=== PATIENT | female | born 1960 | race Caucasian/White ===

== ENCOUNTER 2017-12-21 09:57 | Emergency (ER) | payer OTHER ==
[~2017-12-21] VITALS: Ht 157.5 cm; Wt 67.6 kg
[2017-12-21 09:57] VITALS: BP_SYST 164
[2017-12-21] MEDS ORDERED: NACL 0.9% 1,000 ML IV ONE ×2 (11:00→12:00)
[2017-12-21] MEDS ORDERED: LORazepam 2 MG/ML VIAL (FOR ER USE) IVP ONE (11:00)
[2017-12-21 11:28] LABS: BASOPHILS # (AUTO) 0.1 K/uL (0.0-0.2); EOSINOPHILS % (AUTO) 0.4 % (0.0-4.0); HEMATOCRIT 45.1 % (36-48); HEMOGLOBIN 15.1 g/dL (12.0-16.0); LYMPHOCYTES # (AUTO) 1.1 K/uL (1.0-5.5); LYMPHOCYTES % (AUTO) 15.3 % (20.5-51.5); MEAN CORPUSCULAR HEMOGLOBIN 32 pg (27-31); MEAN CORPUSCULAR HGB CONC 34 % (32-36); MEAN CORPUSCULAR VOLUME 94 fL (79.0-98.0); MONOCYTES # (AUTO) 0.7 K/uL (0.0-1.0); MONOCYTES % (AUTO) 9.8 % (1.7-9.3); NEUTROPHILS # (AUTO) 5.5 K/uL (1.8-7.7); NEUTROPHILS % (AUTO) 73.5 % (40.0-70.0); PLATELET COUNT (AUTO) 214 K/uL (130-430); RED BLOOD CELL COUNT(AUTO) 4.79 MIL/uL (4.2-6.2); RED CELL DISTRIBUTION WIDTH 12.5 % (9.0-15.0); WHITE BLOOD COUNT (AUTO) 7.4 K/uL (4.8-10.8)
[2017-12-21 11:44] LABS: CALCIUM 9.5 mg/dL (8.4-11.0); CREATININE 0.89 mg/dL (0.55-1.30); POTASSIUM 3.5 mmol/L (3.5-5.1)
[2017-12-21 11:49] LABS: ALBUMIN 3.9 g/dL (3.4-4.8); TOTAL BILIRUBIN 0.6 mg/dL (0.0-1.0)
[2017-12-21 13:20] VITALS: BP_SYST 107
== END 2017-12-21 13:20 | disposition home or self-care (01) ==
LOC: SED 09:57
DX: E86.0 Dehydration (principal); R42 Dizziness and giddiness
CPT/HCPCS: 36415; 71045; 80053; 85025; 93005; 96361; 96374; 99285; J2060; J7030

== ENCOUNTER 2018-01-01 23:38 | Emergency (ER) | payer OTHER ==
[~2018-01-01] VITALS: Ht 157.5 cm; Wt 65.3 kg
[2018-01-01 23:40] VITALS: BP_SYST 138
--- NOTE | 2018-01-01 23:40 | NUR ---
Patient to ER bed 8 to gown for evaluation. Side rails up. Report given to LIVIER JACKMAN.
--- NOTE | 2018-01-01 23:41 | NUR ---
Patient AOx4, ambulatory, presents to ER with complaint of headache x1 day. Patient also states posterior neck pain 9/10. Patient states no injury to site. -N/-V/+photosensitivity. Patient states no fevers. at bedside.
--- NOTE | 2018-01-01 23:42 | NUR ---
ER MD Marks at bedside for medical evaluation.
[2018-01-01] MEDS ORDERED: ASPIRIN 325 MG TABLET PO ONE (23:45)
[2018-01-02] MEDS ORDERED: ACETAMINOPHEN 500 MG TABLET PO ONE
[2018-01-02] MEDS ORDERED: CYCLOBENZAPRINE HCL 10 MG TABLET (FLEXERIL) PO ONE
--- NOTE | 2018-01-02 01:08 | NUR ---
# 20 gauge angiocath placed to RAC. Use of asceptic technique. Opsite placed over site. Blood return noted. Blood for lab drawn from site. Flushed with 10 cc of normal saline. No evidence of infiltration noted. Patient tolerated well.
[2018-01-02] MEDS ORDERED: MORPHINE 4 MG/ML INJ. SYRINGE IVP ONE (01:30)
[2018-01-02 01:39] LABS: BASOPHILS # (AUTO) 0.1 K/uL (0.0-0.2); EOSINOPHILS # (AUTO) 0.1 K/uL (0.0-0.4); EOSINOPHILS % (AUTO) 1.3 % (0.0-4.0); HEMATOCRIT 40.2 % (36-48); HEMOGLOBIN 13.6 g/dL (12.0-16.0); LYMPHOCYTES # (AUTO) 3.1 K/uL (1.0-5.5); MEAN CORPUSCULAR HEMOGLOBIN 31 pg (27-31); MEAN CORPUSCULAR HGB CONC 34 % (32-36); MEAN CORPUSCULAR VOLUME 93 fL (79.0-98.0); MONOCYTES # (AUTO) 0.8 K/uL (0.0-1.0); MONOCYTES % (AUTO) 9.5 % (1.7-9.3); NEUTROPHILS % (AUTO) 49.2 % (40.0-70.0); PLATELET COUNT (AUTO) 248 K/uL (130-430); RED BLOOD CELL COUNT(AUTO) 4.34 MIL/uL (4.2-6.2); RED CELL DISTRIBUTION WIDTH 11.9 % (9.0-15.0); WHITE BLOOD COUNT (AUTO) 8.1 K/uL (4.8-10.8)
[2018-01-02 01:53] LABS: PROTHROMBIN TIME 10.4 SECS (9.5-12.5)
[2018-01-02 01:54] LABS: BILIRUBIN,URINE NEGATIVE (NEGATIVE); BLOOD, URINE NEGATIVE (NEGATIVE); CLARITY/URINE CLEAR (CLEAR); COLOR,URINE YELLOW (YELLOW); GLUCOSE,URINE NEGATIVE (NEGATIVE); KETONES,URINE NEGATIVE (NEGATIVE); LEUKOCYTE ESTERASE ,URINE NEGATIVE (NEGATIVE); NITRITE, URINE NEGATIVE (NEGATIVE); PROTEIN URINE NEGATIVE (NEGATIVE); UROBILINOGEN,URINE 0.2 (0.2-1.0)
[2018-01-02 01:57] LABS: CREATININE 0.82 mg/dL (0.55-1.30); POTASSIUM 3.6 mmol/L (3.5-5.1)
[2018-01-02 02:03] LABS: ALBUMIN 3.6 g/dL (3.4-4.8); THYROID STIMULATING HORMONE 2.29 uIu/mL (0.36-3.74); TOTAL BILIRUBIN 0.2 mg/dL (0.0-1.0)
[2018-01-02 02:27] VITALS: BP_SYST 129
--- NOTE | 2018-01-02 02:27 | NUR ---
Patient given written and verbal discharge instructions and verbalizes understanding. ER MD discussed with patient the results and treatment provided. Patient in stable condition. ID arm band removed. IV catheter removed intact and dressing applied, no active bleeding. No Rx given. Patient educated on pain management and to follow up with PMD. Pain Scale 0/10. Opportunity for questions provided and answered.
== END 2018-01-02 02:27 | disposition home or self-care (01) ==
LOC: SED 23:38
DX: R51 Headache (principal)
CPT/HCPCS: 36415; 70450; 80053; 81003; 84443; 85025; 85610; 85730; 96374; 99285; J2270